=== PATIENT | female | born 1995 | race Hispanic/Latino ===

== ENCOUNTER 2017-08-25 02:46 | Emergency (ER) | payer OTHER ==
[2017-08-25] MEDS ORDERED: Acetaminophen 500 MG TAB ONE (03:03)
[2017-08-25] MEDS ORDERED: Dexamethasone 10 MG/ML VIAL ONE (03:24)
== END 2017-08-25 05:05 | disposition home or self-care (01) ==
LOC: ERS 02:46
DX: J06.9 Acute upper respiratory infection, unspecified (principal); F41.9 Anxiety disorder, unspecified; F32.9 Major depressive disorder, single episode, unspecified
CPT/HCPCS: 87081; 87430; 87804; 96365; J1100

== ENCOUNTER 2017-08-28 02:45 | Emergency (ER) | payer OTHER | END 2017-08-28 05:11 | disposition home or self-care (01) | LOC: ERS 02:45 | DX: J11.1 Influenza due to unidentified influenza virus with other respiratory manifestations (principal) | CPT/HCPCS: 99283 ==

== ENCOUNTER 2018-05-15 23:15 | Emergency (ER) | payer OTHER ==
[2018-05-16] MEDS ORDERED: Dexamethasone 4 mg/ml Vial ONE (00:13)
== END 2018-05-16 00:20 | disposition home or self-care (01) ==
LOC: ERS 23:15
DX: J02.9 Acute pharyngitis, unspecified (principal)
CPT/HCPCS: 87081; 87430; 87804; 99283; J1100